=== PATIENT | male | born 1980 | race Caucasian/White ===

== ENCOUNTER 2016-12-27 15:56 | Emergency (ER) | payer SELFPAY | END 2016-12-27 20:35 | disposition home or self-care (01) | LOC: ER 15:56 | DX: M54.5 Low back pain (principal); M54.2 Cervicalgia; V47.0XXA Car driver injured in collision with fixed or stationary object in nontraffic accident, initial encounter; Y92.413 State road as the place of occurrence of the external cause; F17.210 Nicotine dependence, cigarettes, uncomplicated | CPT/HCPCS: 99282 ==